=== PATIENT | female | born 1985 | race Two or more races ===

== ENCOUNTER 2018-08-02 12:37 | Emergency (ER) | payer OTHER ==
[~2018-08-02] VITALS: Ht 165.1 cm; Wt 62.6 kg
[~2018-08-02 12:37] MED LIST: CORTISPORIN EAR10 M1 OT; ORENCIA125 MG/1 M; TUSSI PRES-B L120 M1 PO; ZITHROMAX TRI-500 MG PO
== END 2018-08-02 14:40 | disposition home or self-care (01) ==
LOC: ER 12:37
DX: B34.9 Viral infection, unspecified (principal); H10.12 Acute atopic conjunctivitis, left eye

== ENCOUNTER → 2019-05-10 | Outpatient (CLI) | payer OTHER | END | disposition home or self-care (01) | LOC: PRENATAL 09:00 | DX: O35.3XX1 Maternal care for (suspected) damage to fetus from viral disease in mother, fetus 1 (principal); O26.852 Spotting complicating pregnancy, second trimester; O26.872 Cervical shortening, second trimester; O09.522 Supervision of elderly multigravida, second trimester; O34.42 Maternal care for other abnormalities of cervix, second trimester ==

== ENCOUNTER → 2019-05-27 | Outpatient (CLI) | payer OTHER | END | disposition home or self-care (01) | LOC: PRENATAL 08:30 | DX: O26.872 Cervical shortening, second trimester (principal); O09.522 Supervision of elderly multigravida, second trimester; O35.0XX1 Maternal care for (suspected) central nervous system malformation in fetus, fetus 1 ==

== ENCOUNTER → 2019-06-10 | Outpatient (CLI) | payer OTHER | END | disposition home or self-care (01) | LOC: PRENATAL 10:00 | DX: O26.842 Uterine size-date discrepancy, second trimester (principal); O26.872 Cervical shortening, second trimester; O09.522 Supervision of elderly multigravida, second trimester; Z36.89 Encounter for other specified antenatal screening ==

== ENCOUNTER 2019-09-17 07:00 | Inpatient (IN) | payer OTHER ==
[~2019-09-17] VITALS: Ht 162.6 cm; Wt 63.5 kg
[2019-09-19] MEDS ORDERED: PRENATAL TABLE1 EAC1 PO (02:50)
[2019-09-19] MEDS ORDERED: IRON PO (02:51)
== END 2019-09-21 12:52 | disposition home or self-care (01) | DRG 807 ==
LOC: LDR 09-19 00:33 → OB/GYN 09-19 00:33
PROVIDERS: ADMIT Obstetrics & Gynecology Obstetrics; ATTEND Obstetrics & Gynecology Obstetrics
PROC: 10E0XZZ Delivery of Products of Conception, External Approach (ICD-10-PCS; principal; 2019-09-19)
PROC: 0W8NXZZ Division of Female Perineum, External Approach (ICD-10-PCS; 2019-09-19)
PROC: 4A1HXCZ Monitoring of Products of Conception, Cardiac Rate, External Approach (ICD-10-PCS; 2019-09-19)
DX: O80 Encounter for full-term uncomplicated delivery (principal); Z37.0 Single live birth; Z3A.39 39 weeks gestation of pregnancy; Z20.828 Contact with and (suspected) exposure to other viral communicable diseases

== ENCOUNTER 2019-11-19 13:27 | Day surgery (SDC) | payer OTHER ==
[~2019-11-19 13:27] MED LIST changes: +IRON PO; +PRENATAL TABLE1 EAC1 PO
== END 2019-11-19 21:40 | disposition home or self-care (01) ==
LOC: CIR.AMB 13:27 → U 13:27 → CIR.AMB 21:40
PROVIDERS: ATTEND Obstetrics & Gynecology Obstetrics
DX: Z30.2 Encounter for sterilization (principal); Z64.1 Problems related to multiparity